=== PATIENT | female | born 1975 | race Caucasian/White ===

== ENCOUNTER → 2021-04-12 | Outpatient (CLI) | payer OTHER ==
--- NOTE | 2021-04-12 17:37 | ECHOF ---
Referral Reason:G47.10 Hypersomnia MEASUREMENTS -------- HEIGHT: 172.7 cm WEIGHT: 158.8 kg BP: RVIDd: 3.4 cm (< 3.3) IVSd: 2.3 cm (0.6 - 1.1) LVIDd: 4.2 cm (3.9 - 5.3) LVPWd: 1.7 cm (0.6 - 1.1) IVSs: 2.8 cm LVIDs: 2.6 cm LVPWs: 2.2 cm Ao Diam: 3.3 cm (2.0 - 3.7) AV Cusp: 2.1 cm (1.5 - 2.6) LA Diam: 3.6 cm (2.7 - 3.8) MV EXCURSION: 21.261 mm (> 18.000) MV EF SLOPE: 95 mm/s (70 - 150) EPSS: 0.4 cm MV E Ruddy: 0.65 m/s MV DecT: 130 ms MV A Ruddy: 0.93 m/s MV E/A Ratio: 0.70 RAP: 5.00 mmHg RVSP: 20.80 mmHg FINDINGS -------- Sinus rhythm. This was a technically difficult study with suboptimal views. The left ventricular size is normal. There is severe concentric left ventricular hypertrophy. Ove rall left ventricular systolic function is normal with, an EF between 55 - 60 %. The right ventricle is mildly enlarged. The left atrial size is normal. The right atrial size is normal. 5.0mg of Lumason was utilized for enhancement of images Interatrial and interventricular septum intact. There is no evidence of aortic regurgitation. There is no evidence of aortic stenosis. There is trace mitral regurgitation. Mild tricuspid regurgitation present. There is no evidence of pulmonary hypertension. The right v entricular systolic pressure, as measured by Doppler, is 20.80mmHg. There is no pulmonic regurgitation present. The aortic root size is normal. IVC Not well visulized. There is a small, generalized pericardial effusion present. CONCLUSIONS -------- 1. The left ventricular size is normal. 2. There is severe concentric left ventricular hypertrophy. 3. Overall left ventricular systolic function is normal with, an EF between 55 - 60 %. 4. The right ventricle is mildly enlarged. 5. Mild tricuspid regurgitation present. 6. There is a small, generalized pericardial effusion present. [employer]ACE ATTENDANT: Mariann Pizano RDCS
== END | disposition home or self-care (01) ==
LOC: RADECHMAIN 14:11
PROVIDERS: ATTEND Internal Medicine Critical Care Medicine
DX: G47.10 Hypersomnia, unspecified (principal); I51.7 Cardiomegaly; I31.3 Pericardial effusion (noninflammatory)
CPT/HCPCS: 93306; Q9950

== ENCOUNTER → 2021-09-11 | Outpatient (CLI) | payer OTHER ==
[2021-09-11 16:02] VITALS: BP 143/99; PULSE 71; RESP 16; TEMP 98.3; BMI 46.3
--- NOTE | 2021-09-11 17:20 | P.HPBAR ---
Bariatric H&P - History & Physicial H&P Date: 09/11/21 History & Physicial: Visit/CC: follow-up care. Surgery in [place] Patient initial contact: Initial weight: 165.108 kg Initial weight in pounds: 364.00 Height: 5 ft 7 in Initial BMI: 56.9 Last weight: Current weight: 134.263 kg Current weight in pounds: 296.00 Current BMI: 46.3 [place] body weight (based on NIH guidelines): 61.235 kg Excess body weight loss: 29.6% The patient is a 46 year-old F who presents for Bariatric Assessment. DATE OF SERVICE: 09/11/2021 REASON FOR CONSULTATION: Initial bariatric evaluation. HISTORY OF PRESENT ILLNESS: Ly Brooks is a 46-year-old female who comes with lifelong morbid obesity. She presents for the first time in consultation. She comes with comorbidities of Bryn's disease. Her statistical programmer analyst is Dr. Jansen. She had sleeve gastrectomy in [place] June 2021 during the peak of Covid. She does not follow up with her bariatric provider. She does see an frame stripper. She reports that her frame stripper did not tell her to do bariatric surgery. [place] of the [place]. She reports troubles with eating since her sleeve. She can tolerate liquid diet but cannot tolerate textured foods. She reports she no longer smokes. She is concerned ab out having skin removal surgery although her body mass index is still 46. She has no dietitian follow-up. At height of 5 feet 7 inches, her ideal body weight is 158 pounds. Her highest weight is 295 pounds, body mass index 46.4. She comes in 295 pounds. Her body mass index is 46.4. She is 137 pounds overweight. PAST MEDICAL HISTORY: 1. Morbid obesity due to excess calories 2. Body mass index of 46.4 3. Asthma 4. Gastroesophageal reflux disease 5. Adrenal insufficiency 6. Hypothyroidism 7. Anxiety disorder 8. Osteoarthritis 9. Addisons disease PAST SURGICAL HISTORY: 1. Sleeve gastectomy, 07/2021 in [place] 2. Hysterectomy 3. Cholecystectomy 4. Tonsillectomy HOME MEDICATIONS: Home Medications Medication Instructions Recorded Confirmed Albuterol Nebulized [Ventolin 1 dose INHALATION DIRECTED 09/17/21 09/17/21 Nebulized] Calcium Citrate 1,200 mg PO DAILY 09/17/21 09/17/21 Ergocalciferol [Vitamin D2 (1250 50,000 unit PO WEEKLY 09/17/21 09/17/21 Mcg = [id number] Iu)] Famotidine [Pepcid] 20 mg PO DAILY 09/17/21 09/17/21 Hydrocortisone 20 mg PO DAILY 09/17/21 09/17/21 Multivitamins, Thera [Multivitamin 1 tab PO DAILY 09/17/21 09/17/21 (formulary)] Thyroid,Pork [[place] Thyroid] 180 mg PO DAILY 09/17/21 09/17/21 diazePAM 10 mg PO DIRECTED 09/17/21 09/17/21 methocarbamoL [Robaxin] 500 mg PO DIRECTED 09/17/21 09/17/21 traMADol HCL 50 mg PO DIRECTED 09/17/21 09/17/21 ALLERGIES: Allergies Allergy/AdvReac Type Severity Reaction Status Date / Time Sulfa (Sulfonamide Allergy Swelling Verified 09/17/21 12:53 Antibiotics) SOCIAL HISTORY: Past tobacco use. FAMILY HISTORY: No family history of ulcerative colitis disease or Crohn's disease. Family history of morbid obesity. No lupus in the family. No reports of stomach or esophageal cancer. She reports her grandmother had obesity. REVIEW OF ORGAN SYSTEMS: CONSTITUTIONAL: At height of 5 feet 7 inches, her ideal body weight is 158 pounds. Her highest weight is 295 pounds, body mass index 46.4. She comes in 295 pounds. Her body mass index is 46.4. She is 137 pounds overweight. HEENT: Denies any active troubles with vision or hearing. She has dysphagia ENDOCRINE: Denies diabetes. Has hypothyroidism. Has adrenal insufficiency and Addisons disease. CARDIOVASCULAR: Denies past reports of palpitations or heart attacks or chest pain. RESPIRATORY: Has asthma. No recent pneumonia. GASTROINTESTINAL: Denies any bright red blood per rectum. No diarrhea. No constipation. Has gastroesophageal reflux disease. GENITOURINARY: Denies bladder urgency. No recent blood in urine MUSCULOSKELETAL: Has lower back pain and joint pain. NEURO: Denies chronic migraines. No seizure disorders. PSYCH: Denies depression. No suicidal ideation. Has anxiety. RHEUMATOLOGIC: No lupus. No rheumatoid arthritis. HEMATOLOGIC: Denies any abnormal bleeding or bruising. Denies past history of DVTs. SKIN: No rash. No skin cancer. PHYSICAL EXAM: VITAL SIGNS: Height 5 foot 7 inches, weight 295 pounds. BMI 46.4 Vital Signs Temp 98.3 F 09/11/21 15:58 Pulse 71 09/11/21 15:58 Resp 16 09/11/21 15:58 BP 143/99 09/11/21 15:58 Pulse Ox GENERAL: Well-developed in no acute distress. HEENT: No scleral icterus. Extraocular movements grossly intact. Hears conversational speech. No nasal drainage. NECK: Supple without lymphadenopathy. CHEST: Nonlabored respirations with equal bilateral excursions. CARDIOVASCULAR: Regular rate and regular rhythm. Distal 2+ pulses. ABDOMEN: Obese, soft, nontender, nondistended. MUSCULOSKELETAL: No clubbing, cyanosis. NEURO: No focal or lateralizing signs. Cranial nerves 2 through 12 grossly within normal limits. PSYCH: Appropriate affect. Alert and oriented to person, place and time. SKIN: Good skin turgor. Well perfused. ASSESSMENT: 1. Morbid obesity due to excess calories 2. Body mass index of 46.4 3. Asthma 4. Gastroesophageal reflux disease 5. Adrenal insufficiency 6. Hypothyroidism 7. Anxiety disorder 8. Osteoarthritis 9. Addisons disease PLAN: 1. She has not had any appropriate follow up since her sleeve in June 2021 from [place]. Recommend dietitian management. 2. Recommend computed tomography scan for abdominal pain. 3. Recommend esophagram for dysphagia. 4. Will need medical records however since procedure [place] country it is difficulty to obtain records. 5. Recommend full bariatric lab. 6. May benefit from upper endoscopy following additional studies as she is high risk for surgical procedures. Thank you for this consultation. Past Medical History Smoking Status: Unknown if ever smoked Surgical - Exam Vital Signs Temp Pulse Resp BP 98.3 F 71 16 143/99 09/11/21 15:58 09/11/21 15:58 09/11/21 15:58 09/11/21 15:58 Bariatric Checklist Checklist: Plan: Checklist: EGD: 1. Hiatal hernia: 2. H. Pylori: HgbA1c: Vitamin D: Smoking: Primary care physician referral: Psychiatry clearance: Cardiology clearance: Sleep study: Diet journal: VTE risk score: VTE risk level: Rehab needs at discharge:
== END | disposition home or self-care (01) ==
LOC: BARWHC3 15:00
PROVIDERS: ATTEND Surgery Plastic and Reconstructive Surgery
DX: Z48.815 Encounter for surgical aftercare following surgery on the digestive system (principal)
CPT/HCPCS: 99203

== ENCOUNTER → 2021-09-13 | Outpatient (CLI) | payer OTHER ==
[2021-09-14] LABS: HCT 46.1 % (37.2-46.3); HGB 14.5 g/dL (12.0-15.0); MCH 29.8 pg (27.0-32.0); MCHC 31.5 g/dL (32.0-37.0); MCV 94.7 fL (80.0-97.0); Mean Platelet Volume 10.4 fL (9.5-12.2); NRBC Per 100 WBC 0 /100 WBCS (0.0-0.0); Platelet Count 513 X 10*3/uL (140-440); RBC 4.87 X 10*6/uL (4.10-5.20); RDW 15.6 % (11.5-14.5)
[2021-09-14 00:38] LABS: % Iron Saturation 32.82 (12.00-45.00); ALT 19 U/L (8-44); AST 13 U/L (13-35); Albumin 4.2 g/dL (3.8-4.9); Albumin/Globulin Ratio 1.67 (1.60-3.17); Alkaline Phosphatase 85 U/L (41-126); BUN/Creat Ratio 15.47 Ratio (12.00-20.00); Blood Urea Nitrogen 11.2 mg/dL (9.0-27.0); Calcium 9.6 mg/dL (8.7-10.3); Carbon Dioxide 22.5 mmol/L (20.0-27.5); Chloride 98 mmol/L (96-109); Globulin 2.5 g/dL (1.6-3.3); Glucose 77 mg/dL (70-110); Iron 102 ug/dL (50-170); Magnesium 1.9 mg/dL (1.5-2.4); Non-African American GFR(CKD) 98.4 (60.0-200.0); Phosphorus 3.8 mg/dL (2.4-5.1); Potassium 3.9 mmol/L (3.5-5.5); Sodium 139 mmol/L (135-145); Total Iron Binding Capacity 311 ug/dL (228-460); Total Protein 6.7 g/dL (6.2-8.2)
[2021-09-14 00:52] LABS: Chol/HDL Ratio 4.06 Ratio; LDL Cholesterol,Calculated 137.1 mg/dL (0.0-131.0); Prealbumin 25.2 mg/dL (18.0-42.0)
[2021-09-14 01:08] LABS: INR 0.91 (0.90-1.11); Partial Thromboplastin Time 29.1 sec (23.5-31.0); Prothrombin Time 10.3 sec (9.9-11.9)
[2021-09-16 14:52] LABS: Zinc, Serum 72 ug/dL (60-130)
[2021-09-17 00:07] LABS: Selenium 126 mcg/L (63-160)
== END | disposition home or self-care (01) ==
LOC: LABWHC1 15:15
PROVIDERS: ATTEND Surgery Plastic and Reconstructive Surgery
DX: E89.1 Postprocedural hypoinsulinemia (principal); E66.01 Morbid (severe) obesity due to excess calories; D50.8 Other iron deficiency anemias; D50.9 Iron deficiency anemia, unspecified; E44.0 Moderate protein-calorie malnutrition; E44.1 Mild protein-calorie malnutrition; E45 Retarded development following protein-calorie malnutrition; E55.9 Vitamin D deficiency, unspecified; K74.1 Hepatic sclerosis; N19 Unspecified kidney failure; T56.894A Toxic effect of other metals, undetermined, initial encounter; K50.90 Crohn's disease, unspecified, without complications
CPT/HCPCS: 36415; 80053; 80061; 82306; 82525; 82607; 82728; 83036; 83540; 83550; 83735; 83970; 84100; 84134; 84255; 84425; 84443; 84590; 84630; 85027; 85610; 85730

== ENCOUNTER → 2021-10-21 | Outpatient (CLI) | payer OTHER ==
--- NOTE | 2021-10-21 09:55 | FL ---
EXAMINATION TYPE: FL barium swallow DATE OF EXAM: 10/21/2021 CLINICAL HISTORY: R13.10 Contrast: Omnipaque 1 min 2 sec fl time. 4 oz of liquid EZ paque given The patient ingested contrast without difficulty or delay. Noted are postsurgical changes of gastric sleeve. There is no evidence for leak or obstruction. Contrast is noted within the duodenum. IMPRESSION: Post-surgical change of gastric sleeve without evidence for obstruction or leak at this point in time.
== END | disposition home or self-care (01) ==
LOC: RADUSWWP 08:33
PROVIDERS: ATTEND Surgery Plastic and Reconstructive Surgery
DX: R13.10 Dysphagia, unspecified (principal)
CPT/HCPCS: 74220

== ENCOUNTER → 2021-11-19 | Outpatient (CLI) | payer OTHER ==
--- NOTE | 2021-11-20 07:16 | CT ---
EXAMINATION TYPE: CT abdomen pelvis w con DATE OF EXAM: 11/19/2021 HISTORY: feels like food stuck and vomiting. Gastric sleeve Jun 2021 CT DLP: 1659mGycm Automated Exposure Control for Dose Reduction was Utilized. CONTRAST: CT scan of the abdomen and pelvis is performed with IV Contrast, patient injected with 100 mL of Isov ue 300. COMPARISON: None. FINDINGS: LUNG BASES: Mild to moderate posterior left greater than right bibasilar linear scarring and/or atele ctasis. LIVER/GB: Visualized liver is heterogeneously hypodense consistent with diffuse fatty infiltration. G allbladder is surgically absent. Mild hepatomegaly is seen. No biliary dilatation. PANCREAS: No significant abnormality is seen. SPLEEN: No significant abnormality is seen. ADRENALS: No significant abnormality is seen. KIDNEYS: Symmetric cortical medullary uptake and excretion without hydronephrosis seen bilaterally. BOWEL: The oral contrast only reaches jejunal loops in the left abdomen. Surgical changes from gastri c sleeve are identified with new small size hiatal hernia as sutures extend above the diaphragm. No s uspicious small or large bowel dilatation is seen. No suspicious dilatation of the visualized distal esophagus. Some diverticula in the sigmoid colon. UTERUS/ADNEXA: Uterus is surgically absent or atrophic in appearance. Right ovary or adnexa has 4.3 x 3.5 cm oval low dense lesion axial image 77 and left ovary has 2 adjacent prominent low dense lesion s or single low dense lesion, former is favored with lesions measuring near 4.0 cm long axis. No free fluid in pelvic cul-de-sac. LYMPH NODES: No greater than 1cm abdominal or pelvic lymph nodes are appreciated. OSSEOUS STRUCTURES: [id number] disc space narrowing with vacuum disc phenomenon at L2-L3 leve l. Endplate sclerosis at this level. OTHER: No significant additional abnormality is seen. IMPRESSION: 1. Gastric sleeve changes identified. No bowel obstruction. Small sized hiatal hernia noted. No suspi cious dilatation of the distal esophagus. 2. Hepatomegaly with fatty infiltrated hepatocellular disease. 3. Cystic change to bilateral ovaries, advise nonemergent pelvic ultrasound to better evaluate and ch aracterize.
== END | disposition home or self-care (01) ==
LOC: RADCTMAIN 16:30
PROVIDERS: ATTEND Surgery Plastic and Reconstructive Surgery
DX: K57.32 Diverticulitis of large intestine without perforation or abscess without bleeding (principal); K44.9 Diaphragmatic hernia without obstruction or gangrene; R16.0 Hepatomegaly, not elsewhere classified
CPT/HCPCS: 74177; Q9967